=== PATIENT | male | born 1995 | race African-American/Black ===

== ENCOUNTER 2021-01-08 23:05 | Emergency (ER) | payer SELFPAY ==
[~2021-01-08] VITALS: Ht 170.2 cm; Wt 87.3 kg
[2021-01-08 23:09] VITALS: BP 145/84
[2021-01-08] MEDS ORDERED: HYDROcodone/APAP 5/325 TABLET ONE (23:57)
[2021-01-08] MEDS ORDERED: NEOSPORIN OINT. PKT 1 PACKET ONE ×2 (23:57→23:59)
[2021-01-08] MEDS ORDERED: DIPH,PERTUSS(ACELL),TET VAC/PF 0.5 ML IM-VACC ONE (23:58)
[2021-01-09] MEDS ORDERED: DIPH,PERTUSS(ACELL),TET VAC/PF 0.5 ML IM-VACC ONE
[2021-01-09] MEDS ORDERED: HYDROcodone/APAP 5/325 TABLET PO PRN
--- NOTE | 2021-01-09 00:13 | NUR ---
PT TO CT
--- NOTE | 2021-01-09 01:20 | NUR ---
Patient given discharge instructions and they have confirmed that they understand the instructions. Patient ambulatory with steady gait.
== END 2021-01-09 01:29 | disposition home or self-care (01) ==
LOC: ED 23:35
DX: S61.411A Laceration without foreign body of right hand, initial encounter (principal); S00.83XA Contusion of other part of head, initial encounter; Y04.8XXA Assault by other bodily force, initial encounter; Y93.89 Activity, other specified; Y92.89 Other specified places as the place of occurrence of the external cause; Y99.8 Other external cause status
CPT/HCPCS: 70486; 99284